=== PATIENT | female | born 1995 | race Caucasian/White ===

== ENCOUNTER 2017-07-24 09:31 | Inpatient (IN) | payer BC ==
[2017-07-24] MEDS ORDERED: Citric Acid/Sodium Citrate Solution 30 ML Cup PO ONE (10:21)
[2017-07-24] MEDS ORDERED: Sodium Chloride 0.9% 10 ML Syringe FLUSH PRN ×2 (10:21→14:12)
[2017-07-24] MEDS ORDERED: Metoclopramide 10 MG/2 ML SDV IVPUSH ONE (10:21)
[2017-07-24] MEDS ORDERED: ceFAZolin 2 GM in Premix Bag 1 BAG IV ONE (10:21)
[2017-07-24] MEDS ORDERED: Lactated Ringers 1,000 ML IV SCH (10:30)
--- NOTE | 2017-07-24 10:51 | PCM.LDHP ---
L&D History of Present Illness - General Date of Service: 07/24/17 Admit Problem/Dx: Patient Status Order with Admit Dx/Problem 07/24/17 10:21 Patient Status [ADT] Routine Admission Diagnosis/Problem Admission Diagnosis/Problem Source of Information: Patient History Limitations: Reports: No Limitations - History of Present Illness Introduction:: 22 y/o JASEN 07/30/2017 at EGA [id number] Presented to clinic with USG confirmed oblique lie. GBS positive. Aleternative of treatment including observation and expectant management, attempted version with discussion of possible co-morbidity and co-mortality and section with co-morbidity and co-mortality discussion. Patient and mother have elected to proceed with section. Improves with: Reports: None Worsens with: Reports: None Associated Symptoms: Reports: N - Related Data Allergies/Adverse Reactions: Allergies Allergy/AdvReac Type Severity Reaction Status Date / Time No Known Allergies Allergy Verified 07/21/16 21:03 Home Medications: Home Meds Azithromycin [Zithromax] 1 gm PO DAILY 07/24/17 [History] Benzonatate [Tessalon Perle] 100 mg PO TID PRN 07/24/17 [History] Prenat Vit Comb.10/Iron/Fa/Dha [Vitafol-OB + DHA] 1 each PO DAILY 07/24/17 [ History] Past Medical History HEENT History: Reports: Impaired Vision Other HEENT History: glasses : 1 Para: 0 (0000) LMP (Approximate): - Past Surgical History HEENT Surgical History: Reports: Oral Surgery Social & Family History - Family History Family Medical History: Noncontributory - Tobacco Use Smoking Status *Q: Current Every Day Smoker Years of Tobacco use: 2 Packs/Tins Daily: 1 - Caffeine Use Caffeine Use: Reports: None - Recreational Drug Use Recreational Drug Use: No - Living Situation & Occupation Living situation: Reports: Single, Other Occupation: Employed H&P Review of Systems - Review of Systems: Review Of Systems: See Below General: Reports: No Symptoms HEENT: Reports: No Symptoms Pulmonary: Reports: No Symptoms Cardiovascular: Reports: No Symptoms Gastrointestinal: Reports: No Symptoms Genitourinary: Reports: No Symptoms Musculoskeletal: Reports: No Symptoms Skin: Reports: No Symptoms Psychiatric: Reports: No Symptoms Neurological: Reports: No Symptoms Hematologic/Lymphatic: Reports: No Symptoms Immunologic: Reports: No Symptoms L&D Exam - Exam Exam: See Below - Vital Signs Weight: 188 lb - Benitez Score Benitez Score Cervix Position: Posterior Benitez Score Consistency: Soft Benitez Score Effacement: 0-30% Benitez Score Dilation: Closed Benitez Score 's Station: -3 Benitez Score Total: 2 - Exam General: Alert, Oriented HEENT: Conjunctiva Clear, Mucosa Moist & [place], PERRLA Neck: Supple, Trachea Midline Lungs: Clear to Auscultation, Normal Respiratory Effort Cardiovascular: Regular Rate, Regular Rhythm GI/Abdominal Exam: Normal Bowel Sounds, Soft, Non-Tender, No Distention, No Abnormal Bruit Genitourinary: Normal external exam, Normal bimanual exam, Normal speculum exam Back Exam: Normal Inspection, Full Range of Motion Extremities: Normal Inspection, Normal Range of Motion, Non-Tender, No Pedal Edema, Normal Capillary Refill Skin: Warm, Dry, Intact Neurological: Reflexes Equal Bilateral Psychiatric: Alert, Normal Affect, Normal Mood - Problem List (1) 39 weeks gestation of SNOMED Code(s): 89404829 ICD Code: Z3A.39 - 39 WEEKS GESTATION OF Status: Acute Current Visit: Yes (2) GBS (group B Streptococcus carrier), +RV culture, currently SNOMED Code(s): 8116252213175, 9359513697989 ICD Code: O99.820 - STREPTOCOCCUS B CARRIER STATE COMPLICATING Status: Acute Current Visit: Yes (3) Oblique presentation, antepartum SNOMED Code(s): 98492557 ICD Code: O32.2XX0 - MATERNAL CARE FOR TRANSVERSE AND OBLIQUE LIE, UNSP Status: Acute Current Visit: Yes Qualifiers: Fetus number: single or unspecified fetus Qualified Code(s): O32.2XX0 - Maternal care for transverse and oblique lie, not applicable or unspecified Problem List Initiated/Reviewed/Updated: No Orders Last 24hrs: Active Orders 24 hr Category Date Time Status Patient Status [ADT] Routine ADT 07/24/17 10:21 Active Blood Glucose Check, Bedside [RC] ASDIRECTED Care 07/24/17 10:21 Active Communication Order [RC] ROUTINE Care 07/24/17 10:21 Active Heart Tones [RC] PER UNIT ROUTINE Care 07/24/17 10:21 Active Peripheral IV Care [RC] . DIRECTED Care 07/24/17 10:24 Active Procedure Site Prep Instruct [RC] ASDIRECTED Care 07/24/17 10:21 Active Verify Patient Consent Obtain [RC] PER UNIT ROUTINE Care 07/24/17 10:21 Active Vital Signs [RC] PFP Care 07/24/17 10:21 Active CBC WITH AUTO DIFF [HEME] Stat Lab 07/24/17 10:21 Ordered TYPE AND SCREEN [BBK] Routine Lab 07/24/17 10:21 Ordered Lactated Ringers [Ringers, Lactated] 1,000 ml Med 07/24/17 10:30 Active IV ASDIRECTED Sodium Chloride 0.9% [Saline Flush] Med 07/24/17 10:21 Active 10 ml FLUSH ASDIRECTED PRN ceFAZolin [Ancef] 2 gm Med 07/24/17 10:21 Active Premix Bag 1 bag IV ONETIME Peripheral IV Insertion Adult [OM.PC] Routine Oth 07/24/17 10:21 Ordered Schedule Procedure [COMM] Per Unit Routine Oth 07/24/17 10:21 Ordered Resuscitation Status Routine Resus Stat 07/24/17 10:21 Ordered Medication Orders Cefazolin Sodium/Dextrose 2 gm (/ Premix) 50 mls @ 100 mls/hr IV ONETIME ONE Stop: 07/24/17 10:50 Lactated Ringer's (Ringers, Lactated) 1,000 mls @ 125 mls/hr IV ASDIRECTED TRAVIS Sodium Chloride (Saline Flush) 10 ml FLUSH ASDIRECTED PRN PRN Reason: Keep Vein Open Assessment/Plan Comment:: Plan section
[2017-07-24] MEDS ORDERED: Morphine PF 1 MG/ML Amp ONE (10:55)
[2017-07-24] MEDS ORDERED: Bupivacaine 0.5% 30 ML SDV ONE (11:12)
[2017-07-24] MEDS ORDERED: ceFAZolin 1 GM Vial ONE ×2 (11:20→11:27)
[2017-07-24] MEDS ORDERED: Oxytocin 10 Units/1 ML SDV ONE ×2 (11:29→12:26)
[2017-07-24] MEDS ORDERED: 50% Dextrose in Water 50 ML Syringe ONE (11:30)
--- NOTE | 2017-07-24 11:45 | US ---
Biophysical profile: Multiple real-time images were obtained. Comparison: Previous studies are available, most recent obstetrical ultrasound of 03/12/17. Dates: LMP: LMP given as 10/18/16, JASEN 07/25/17, gestational age 39 weeks 6 days Current ultrasound: JASEN 08/07/17, gestational age 38 weeks 0 days Earliest ultrasound (12/06/16): JASEN 07/20/17, gestational age 40 weeks 4 days presentation: Oblique headdown with face pointing to the maternal left side Placenta: Posterior and fundal Amniotic fluid: SENG 17.19 cm Measurements: BPD: 9.17 cm - 37 weeks 2 days Head circumference: 33.29 cm - 38 weeks 0 days Abdominal circumference: 34.93 cm - 38 weeks 6 days Femur length: 7.42 cm - 38 weeks 0 days Estimated weight: 3465 g (7 lbs. 10 oz.), estimated weight at the 50th percentile for age Heart rate: 148 bpm Cervical length: 3.1 cm Biophysical profile: movement 2, breathing movement 0, tone 2, amniotic fluid volume 2 Impression: 1. Single intrauterine fetus currently in oblique headdown position with face to the maternal left side. Dates as noted above. 2. 6 out of 8 on biophysical profile. Preliminary report given by the scanning technologist to physician's nurse Diagnostic code #5
[2017-07-24] MEDS ORDERED: Lactated Ringers 1,000 ML ONE ×2 (12:09→12:41)
[2017-07-24] MEDS ORDERED: Ketorolac 30 MG/ML SDV ONE (12:23)
[2017-07-24] MEDS ORDERED: fentaNYL 250 MCG/5 ML SDV IVPUSH PRN (12:38)
--- NOTE | 2017-07-24 12:39 | PCM.POSTAN ---
POST ANESTHESIA ASSESSMENT - MENTAL STATUS Mental Status: Alert, Oriented - VITAL SIGNS Pulse Rate: 85 SaO2: 97 Resp Rate: 8 Blood Pressure: 124/71 Temperature: 36.3 C - RESPIRATORY Respiratory Status: Respiratory Rate WNL, Airway Patent, O2 Saturation Stable, Supplemental Oxygen - CARDIOVASCULAR CV Status: Pulse Rate WNL, Blood Pressure Stable - GASTROINTESTINAL GI Status: No Symptoms - PAIN Pain Score: 0 - POST OP HYDRATION Hydration Status: Adequate & Stable - OBSERVATIONS Free Text/Narrative:: no anesthesia complications noted
--- NOTE | 2017-07-24 12:41 | PCM.PREANE ---
Preanesthetic Assessment - Anesthesia/Transfusion/Family Hx Anesthesia History: No Prior Anesthesia Family History of Anesthesia Reaction: No Transfusion History: No Prior Transfusion(s) - Review of Systems General: Other (cold symptoms) Pulmonary: Cough Cardiovascular: No Symptoms Gastrointestinal: No Symptoms Neurological: Numbness (hands) Other: Reports: Diabetes (gluco check at 1140 of 65) - Physical Assessment NPO Status Date: 07/23/17 NPO Status Time: 22:00 Pulse: 85 O2 Sat by Pulse Oximetry: 97 Respiratory Rate: 8 Blood Pressure: 124/71 Temperature: 36.3 C Vital Signs: Last Vital Signs Temp 36.3 C 07/24/17 12:39 Pulse 85 07/24/17 12:39 Resp 8 L 07/24/17 12:39 BP 124/71 07/24/17 12:39 Pulse Ox 97 07/24/17 12:39 Height: 1.52 m Weight: 85.275 kg ASA Class: 2 Mental Status: Alert & Oriented x3 Airway Class: Mallampati = 1 Dentition: Reports: Normal Dentition, [place](s) Thyro-Mental Finger Breadths: 3 Mouth Opening Finger Breadths: 3 ROM/Head Extension: Full Lungs: Clear to Auscultation, Normal Respiratory Effort Cardiovascular: Regular Rate, Regular Rhythm, No Murmurs - Lab Values: Laboratory Last Values WBC 18.74 K/mm3 (3.98-10.04) H 07/24/17 10:46 RBC 4.45 M/mm3 (3.98-5.22) 07/24/17 10:46 Hgb 13.7 gm/L (11.2-15.7) 07/24/17 10:46 Hct 38.4 % (34.1-44.9) 07/24/17 10:46 MCV 86.3 fl (79.4-94.8) 07/24/17 10:46 MCH 30.8 pg (25.6-32.2) 07/24/17 10:46 MCHC 35.7 g/dl (32.2-35.5) H 07/24/17 10:46 RDW Std Deviation 42.5 fL (36.4-46.3) 07/24/17 10:46 Plt Count 220 K/mm3 (182-369) 07/24/17 10:46 MPV 11.0 fl (9.4-12.3) 07/24/17 10:46 Neut % (Auto) 77.5 % (34.0-71.1) H 07/24/17 10:46 Lymph % (Auto) 15.6 % (19.3-51.7) L 07/24/17 10:46 [place] % (Auto) 6.1 % (4.7-12.5) 07/24/17 10:46 Eos % (Auto) 0.3 (0.7-5.8) L 07/24/17 10:46 Baso % (Auto) 0.1 % (0.1-1.2) 07/24/17 10:46 Neut # (Auto) 14.51 K/mm3 (1.56-6.13) H 07/24/17 10:46 Lymph # (Auto) 2.93 K/mm3 (1.18-3.74) 07/24/17 10:46 [place] # (Auto) 1.14 K/mm3 (0.24-0.36) H 07/24/17 10:46 Eos # (Auto) 0.06 K/mm3 (0.04-0.36) 07/24/17 10:46 Baso # (Auto) 0.02 K/mm3 (0.01-0.08) 07/24/17 10:46 POC Glucose 95 mg/dL (70-105) 07/24/17 12:37 - Allergies Allergies/Adverse Reactions: Allergies Allergy/AdvReac Type Severity Reaction Status Date / Time No Known Allergies Allergy Verified 07/21/16 21:03 - Anesthesia Plan Pre-Op Medication Ordered: Antacids - Acknowledgements Anesthesia Type Planned: Spinal Pt an Appropriate Candidate for the Planned Anesthesia: Yes Alternatives and Risks of Anesthesia Discussed w Pt/Guardian: Yes Pt/Guardian Understands and Agrees with Anesthesia Plan: Yes PreAnesthesia Questionnaire HEENT History: Reports: Impaired Vision Other HEENT History: glasses Gastrointestinal History: Reports: GERD - Past Surgical History HEENT Surgical History: Reports: Oral Surgery - SUBSTANCE USE Smoking Status *Q: Current Every Day Smoker Tobacco Use Within Last Twelve Months: Cigarettes Recreational Drug Use History: No - HOME MEDS Home Medications: Home Meds Azithromycin [Zithromax] 1 gm PO DAILY 07/24/17 [History] Benzonatate [Tessalon Perle] 100 mg PO TID PRN 07/24/17 [History] Prenat Vit Comb.10/Iron/Fa/Dha [Vitafol-OB + DHA] 1 each PO DAILY 07/24/17 [ History] - CURRENT (IN HOUSE) MEDS Current Meds: Current Medications Fentanyl (Sublimaze) 50 mcg IVPUSH Q5M PRN PRN Reason: PAIN Lactated Ringer's (Ringers, Lactated) 1,000 mls @ 125 mls/hr IV ASDIRECTED TRAVIS Last Admin: 07/24/17 11:00 Dose: 125 mls/hr Sodium Chloride (Saline Flush) 10 ml FLUSH ASDIRECTED PRN PRN Reason: Keep Vein Open Discontinued Medications Bupivacaine HCl (Marcaine 0.5%) Confirm Administered Dose 30 ml .ROUTE .STK-MED ONE Stop: 07/24/17 11:13 Cefazolin Sodium (Ancef) Confirm Administered Dose 2 gm .ROUTE .STK-MED ONE Stop: 07/24/17 11:21 Cefazolin Sodium (Ancef) Confirm Administered Dose 2 gm .ROUTE .STK-MED ONE Stop: 07/24/17 11:28 Citric Acid/Sodium Citrate (Bicitra Solution) 30 ml PO ONETIME ONE Stop: 07/24/17 10:22 Last Admin: 07/24/17 11:13 Dose: 30 ml Cefazolin Sodium/Dextrose 2 gm (/ Premix) 50 mls @ 100 mls/hr IV ONETIME ONE Stop: 07/24/17 10:50 Lactated Ringer's (Ringers, Lactated) Confirm Administered Dose 1,000 mls @ as directed .ROUTE .STK-MED ONE Stop: 07/24/17 12:10 Lactated Ringer's (Ringers, Lactated) Confirm Administered Dose 1,000 mls @ as directed .ROUTE .STK-MED ONE Stop: 07/24/17 12:42 Ketorolac Tromethamine (Toradol) Confirm Administered Dose 30 mg .ROUTE .STK- MED ONE Stop: 07/24/17 12:24 Metoclopramide HCl (Reglan) 10 mg IVPUSH ONETIME ONE Stop: 07/24/17 10:22 Last Admin: 07/24/17 11:13 Dose: 10 mg Morphine Sulfate (Duramorph Pf) Confirm Administered Dose 1 mg .ROUTE .STK-MED ONE Stop: 07/24/17 10:56 Oxytocin (Pitocin) Confirm Administered Dose 10 unit .ROUTE .STK-MED ONE Stop: 07/24/17 11:30 Oxytocin (Pitocin) Confirm Administered Dose 10 unit .ROUTE .STK-MED ONE Stop: 07/24/17 12:27
--- NOTE | 2017-07-24 12:45 | PCM.OPNOTE ---
- General Post-Op/Procedure Note Date of Surgery/Procedure: 07/24/17 Operative Procedure(s): Primary low segment transverse Pre Op Diagnosis: Oblique lie, 39 weeks 1 day estimated gestational age, gestational diabetes, group B strep positive Post-Op Diagnosis: Same Anesthesia Technique: Spinal Primary Surgeon: Huber Marrero Secondary Surgeon: Rasheed Fraire Anesthesia Provider: Brian Stinson Reason Planetarium Technician Was Necessary: Asst. surgery, decreased co-morbidity and co-mortality Role of Planetarium Technician: Asst. surgery, decreased co-morbidity and co-mortality Fluid Replacement, Intraop: 2,300 Output, Urine Amount: 30 EBL in mLs: 550 Drain/Tube Comments:: Yang catheter to gravity drainage closed system Complications: None Condition: Good Free Text/Narrative:: Patient was transported to operating room #1 and placed under spinal anesthesia in the supine position with wedge under the right hip and right flank. SCDs in place and functioning. Ancef 2 g given intravenously prior surgery. Patient prepared and draped in a sterile fashion. Timeout performed confirming name date of and procedure as section. Adequate level of anesthesia was confirmed patient's mother was brought to the operating room. Incision was made and care was sharp section to into the anterior fascia peritoneal cavity entered without difficulty. Bladder flap created pushed caudad. Low segment transverse performed. Amnionic fluid clear upon entry into the amnionic cavity. Vacuum Kiwi was applied 2 in the green for less than 20 seconds. The male liveborn was delivered at 1208 hrs. on 07/24/17 Apgars 9/9 weight 3500 g, 7 lbs. 11 oz. Delivered FLORIDA Waller gravity flow irrigator cared for the . Cord blood collected from three-vessel cord placenta removed manually endometrial cavity inspected. Sponge needle pack and sharp count correct times one on closure the uterine incision. Both tubes and ovaries were normal the clots were cleaned from the gutters and cul-de-sac uterus placed into the abdominal cavity. Uterine incision reinspected no bleeding. Sponge needle pack asthma sharp count correct 2 and the abdominal cavity was closed with #1 PDS for the anterior fascia. Her gait and carried out and subcutaneous tissue and the skin was closed subcuticular 3-0 Monocryl. Dermabond applied. Clots were cleaned from the vagina at the end of the procedure. Patient transported postanesthesia care unit in satisfactory condition. No blood transfusions were required. Procedure duration 24 minutes. Toradol given at 1230 hrs.
[2017-07-24] MEDS ORDERED: Benzonatate 100 MG Cap PO PRN (12:48)
[2017-07-24] MEDS ORDERED: Albuterol 0.083% 2.5 MG/3 ML Neb Soln ONE (12:56)
[2017-07-24] MEDS ORDERED: Albuterol 0.083% 2.5 MG/3 ML Neb Soln NEB PRN (13:06)
[2017-07-24] MEDS ORDERED: Dextrose 5%-Lactated Ringers 1,000 ML IV SCH (14:12)
[2017-07-24] MEDS ORDERED: ePHEDrine 50 MG/ML SDV IVPUSH PRN (14:12)
[2017-07-24] MEDS ORDERED: Ondansetron 4 MG/2 ML SDV IV PRN (14:12)
[2017-07-24] MEDS ORDERED: Naloxone 0.4 MG/ML SDV IVPUSH PRN (14:12)
[2017-07-24] MEDS ORDERED: diphenhydrAMINE 50 MG/ML SDV IVPUSH PRN (14:12)
[2017-07-24] MEDS ORDERED: Acetaminophen 325 MG Tab PO PRN (14:12)
[2017-07-24] MEDS ORDERED: Lanolin 100% Cream 7 GM Tube TOP PRN (14:12)
[2017-07-24] MEDS ORDERED: Azithromycin 250 MG Tab PO SCH (15:45)
[2017-07-24] MEDS ORDERED: Albuterol 0.5% 2.5 MG/0.5 ML Neb Soln NEB SCH (16:00)
[2017-07-24] MEDS: Simethicone 80 MG Tab.Chew PO SCH ×3 (16:52→21:13)
[2017-07-24] MEDS: Ketorolac 30 MG/ML SDV IVPUSH SCH (19:14)
[2017-07-24] MEDS: BENZONATATE 100 MG PO SCH ×2 (19:15→21:13)
[2017-07-25] MEDS: Ketorolac 30 MG/ML SDV IVPUSH SCH ×2 (01:06→06:05)
--- NOTE | 2017-07-25 07:51 | PCM.SN ---
- Free Text/Narrative Note: POD#1/PPD#1 Afebrile, Breast feeding. Incision normal. Uterus involuting normally. No heavy vaginal bleeding. No leg cramping. Dr Fraire assumes call at 1700 today and will see and dismiss pt.
[2017-07-25] MEDS: Docusate Sodium 100 MG Cap PO PRN (08:54)
[2017-07-25] MEDS: Simethicone 80 MG Tab.Chew PO SCH ×4 (08:54→21:14)
[2017-07-25] MEDS: AZITHROMYCIN 500 MG PO SCH (08:56)
[2017-07-25] MEDS: BENZONATATE 100 MG PO SCH ×3 (08:56→21:07)
--- NOTE | 2017-07-25 09:58 | PCM48HPAN ---
Post Anesthesia Note - EVALUATION WITHIN 48HRS OF ANESTHETIC Vital Signs in Normal Range: Yes Patient Participated in Evaluation: Yes Respiratory Function Stable: Yes Airway Patent: Yes Cardiovascular Function Stable: Yes Hydration Status Stable: Yes Pain Control Satisfactory: Yes Nausea and Vomiting Control Satisfactory: Yes Mental Status Recovered: Yes - COMMENTS/OBSERVATIONS Free Text/Narrative:: Patient denies any headaches, residual numbness/tingling to LE, but did state she does have a little back soreness at the insertion site. Educated patient it may take a few days for that to resolve. Stated the epidural worked great for the delivery.
[2017-07-25] MEDS: Acetaminophen/oxyCODONE 325-5 MG Tab PO PRN ×2 (12:24→22:38)
[2017-07-25] MEDS: Ibuprofen 600 MG Tab PO PRN (21:08)
[2017-07-26] MEDS: Docusate Sodium 100 MG Cap PO PRN (00:20)
[2017-07-26] MEDS: Acetaminophen/oxyCODONE 325-5 MG Tab PO PRN (04:51)
[2017-07-26] MEDS: Ibuprofen 600 MG Tab PO PRN (04:51)
[2017-07-26 08:49] VITALS: BP 138/74
[2017-07-26] MEDS: Simethicone 80 MG Tab.Chew PO SCH (09:25)
[2017-07-26] MEDS: BENZONATATE 100 MG PO SCH (09:25)
[2017-07-26] MEDS: AZITHROMYCIN 500 MG PO SCH (09:25)
--- NOTE | 2017-07-26 10:46 | PCM.SN ---
- Free Text/Narrative Note: Post Operative Progress Note POD # 2 Subjective: Doing well overall. Ambulating without difficulty. Lochia minimal. Voiding without difficulty. Passing flatus and had a bowel movement. Tolerating regular diet. Pain controlled with oral medications. Breast feeding with minimal difficulty. Objective: Vitals: Vital Signs - 24 hr 07/25/17 07/25/17 07/25/17 11:00 11:53 12:00 Temperature Temperature [ 37.0 C Temporal] Pulse, 72 Peripheral Pulse, 72 Peripheral [ Right Pulse Oximetry] Respiratory 18 Rate Blood Pressure 116/68 Blood Pressure 116/68 [Left Upper Arm ] O2 Sat by Pulse 100 97 97 Oximetry 07/25/17 07/25/17 07/25/17 13:00 18:25 18:28 Temperature 35.7 C 35.7 C Temperature [ Temporal] Pulse, Peripheral Pulse, 89 Peripheral [ Right Pulse Oximetry] Respiratory 18 18 Rate Blood Pressure 150/104 H 137/91 H Blood Pressure [Left Upper Arm ] O2 Sat by Pulse 98 98 Oximetry 07/25/17 07/26/17 07/26/17 20:54 04:49 08:08 Temperature 36.6 C 36.4 C Temperature [ Temporal] Pulse, 74 74 67 Peripheral Pulse, Peripheral [ Right Pulse Oximetry] Respiratory 14 14 Rate Blood Pressure 136/87 131/72 138/74 Blood Pressure [Left Upper Arm ] O2 Sat by Pulse 99 100 98 Oximetry Physical Exam General: Alert and oriented, no acute distress Lungs: Clear to auscultation bilaterally Heart: Regular rate and rhythm Abdomen: Soft, minimal appropriate tenderness, non-distended, fundus midline, nontender and below the umbilicus Incision: Clean, dry and intact, no erythema, bleeding or drainage, Prineo dressing in place Extremities: No edema Labs: Laboratory Tests 07/24/17 07/24/17 07/24/17 Range/Units 10:46 10:46 11:34 WBC 18.74 H (3.98-10.04) K/mm3 RBC 4.45 (3.98-5.22) M/mm3 Hgb 13.7 (11.2-15.7) gm/L Hct 38.4 (34.1-44.9) % MCV 86.3 (79.4-94.8) fl MCH 30.8 (25.6-32.2) pg MCHC 35.7 H (32.2-35.5) g/dl RDW Std Deviation 42.5 (36.4-46.3) fL Plt Count 220 (182-369) K/mm3 MPV 11.0 (9.4-12.3) fl Neut % (Auto) 77.5 H (34.0-71.1) % Lymph % (Auto) 15.6 L (19.3-51.7) % [place] % (Auto) 6.1 (4.7-12.5) % Eos % (Auto) 0.3 L (0.7-5.8) Baso % (Auto) 0.1 (0.1-1.2) % Neut # (Auto) 14.51 H (1.56-6.13) K/mm3 Lymph # (Auto) 2.93 (1.18-3.74) K/mm3 [place] # (Auto) 1.14 H (0.24-0.36) K/mm3 Eos # (Auto) 0.06 (0.04-0.36) K/mm3 Baso # (Auto) 0.02 (0.01-0.08) K/mm3 Manual Slide Review POC Glucose 65 L (70-105) mg/dL Blood Type AB POSITIVE Gel Antibody Screen Negative 07/24/17 07/25/17 Range/Units 12:37 06:57 WBC 21.05 H (3.98-10.04) K/mm3 RBC 3.96 L (3.98-5.22) M/mm3 Hgb 12.3 (11.2-15.7) gm/L Hct 34.6 (34.1-44.9) % MCV 87.4 (79.4-94.8) fl MCH 31.1 (25.6-32.2) pg MCHC 35.5 (32.2-35.5) g/dl RDW Std Deviation 42.9 (36.4-46.3) fL Plt Count 197 (182-369) K/mm3 MPV 10.7 (9.4-12.3) fl Neut % (Auto) 77.5 H (34.0-71.1) % Lymph % (Auto) 12.5 L (19.3-51.7) % [place] % (Auto) 9.2 (4.7-12.5) % Eos % (Auto) 0.3 L (0.7-5.8) Baso % (Auto) 0.1 (0.1-1.2) % Neut # (Auto) 16.31 H (1.56-6.13) K/mm3 Lymph # (Auto) 2.63 (1.18-3.74) K/mm3 [place] # (Auto) 1.94 H (0.24-0.36) K/mm3 Eos # (Auto) 0.06 (0.04-0.36) K/mm3 Baso # (Auto) 0.02 (0.01-0.08) K/mm3 Manual Slide Review Abnormal smear POC Glucose 95 (70-105) mg/dL Blood Type Gel Antibody Screen ASSESSMENT: 22-year-old female G 1 P 1001 s/p primary section POD #2 for oblique lie and desired section, complicated by diet controlled gestational diabetes, maternal smoking, GBS positive PLAN: Doing well Breast feeding with minimal difficulty. Assist as needed Incision healing well. Continue to keep clean and dry. Lochia minimal. Continue to monitor for appropriate lochia. Continue routine post-operative care Anticipate discharge home today Rasheed Fraire MD 10:45 AM 07/26/2017
--- NOTE | 2017-07-26 10:49 | PCM.DCSUM1 ---
Discharge Summary - Hospital Course Free Text/Narrative:: Patient was transported to operating room #1 and placed under spinal anesthesia in the supine position with wedge under the right hip and right flank. SCDs in place and functioning. Ancef 2 g given intravenously prior surgery. Patient prepared and draped in a sterile fashion. Timeout performed confirming name date of and procedure as section. Adequate level of anesthesia was confirmed patient's mother was brought to the operating room. Incision was made and care was sharp section to into the anterior fascia peritoneal cavity entered without difficulty. Bladder flap created pushed caudad. Low segment transverse performed. Amnionic fluid clear upon entry into the amnionic cavity. Vacuum Kiwi was applied 2 in the green for less than 20 seconds. The male liveborn was delivered at 1208 hrs. on 07/24/17 Apgars 9/9 weight 3500 g, 7 lbs. 11 oz. Delivered FLORIDA Waller shrimp peeler cared for the . Cord blood collected from three-vessel cord placenta removed manually endometrial cavity inspected. Sponge needle pack and sharp count correct times one on closure the uterine incision. Both tubes and ovaries were normal the clots were cleaned from the gutters and cul-de-sac uterus placed into the abdominal cavity. Uterine incision reinspected no bleeding. Sponge needle pack asthma sharp count correct 2 and the abdominal cavity was closed with #1 PDS for the anterior fascia. Her gait and carried out and subcutaneous tissue and the skin was closed subcuticular 3-0 Monocryl. Dermabond applied. Clots were cleaned from the vagina at the end of the procedure. Patient transported postanesthesia care unit in satisfactory condition. No blood transfusions were required. Procedure duration 24 minutes. Toradol given at 1230 hrs. HPI Initial Comments: Patient was transported to operating room #1 and placed under spinal anesthesia in the supine position with wedge under the right hip and right flank. SCDs in place and functioning. Ancef 2 g given intravenously prior surgery. Patient prepared and draped in a sterile fashion. Timeout performed confirming name date of and procedure as section. Adequate level of anesthesia was confirmed patient's mother was brought to the operating room. Incision was made and care was sharp section to into the anterior fascia peritoneal cavity entered without difficulty. Bladder flap created pushed caudad. Low segment transverse performed. Amnionic fluid clear upon entry into the amnionic cavity. Vacuum Kiwi was applied 2 in the green for less than 20 seconds. The male liveborn was delivered at 1208 hrs. on 07/24/17 Apgars 9/9 weight 3500 g, 7 lbs. 11 oz. Delivered FLORIDA Waller shrimp peeler cared for the . Cord blood collected from three-vessel cord placenta removed manually endometrial cavity inspected. Sponge needle pack and sharp count correct times one on closure the uterine incision. Both tubes and ovaries were normal the clots were cleaned from the gutters and cul-de-sac uterus placed into the abdominal cavity. Uterine incision reinspected no bleeding. Sponge needle pack asthma sharp count correct 2 and the abdominal cavity was closed with #1 PDS for the anterior fascia. Her gait and carried out and subcutaneous tissue and the skin was closed subcuticular 3-0 Monocryl. Dermabond applied. Clots were cleaned from the vagina at the end of the procedure. Patient transported postanesthesia care unit in satisfactory condition. No blood transfusions were required. Procedure duration 24 minutes. Toradol given at 1230 hrs. Brief History: Patient was transported to operating room #1 and placed under spinal anesthesia in the supine position with wedge under the right hip and right flank. SCDs in place and functioning. Ancef 2 g given intravenously prior surgery. Patient prepared and draped in a sterile fashion. Timeout performed confirming name date of and procedure as section. Adequate level of anesthesia was confirmed patient's mother was brought to the operating room. Incision was made and care was sharp section to into the anterior fascia peritoneal cavity entered without difficulty. Bladder flap created pushed caudad. Low segment transverse performed. Amnionic fluid clear upon entry into the amnionic cavity. Vacuum Kiwi was applied 2 in the green for less than 20 seconds. The male liveborn was delivered at 1208 hrs. on 07/24/17 Apgars 9/9 weight 3500 g, 7 lbs. 11 oz. Delivered FLORIDA Waller shrimp peeler cared for the . Cord blood collected from three-vessel cord placenta removed manually endometrial cavity inspected. Sponge needle pack and sharp count correct times one on closure the uterine incision. Both tubes and ovaries were normal the clots were cleaned from the gutters and cul-de-sac uterus placed into the abdominal cavity. Uterine incision reinspected no bleeding. Sponge needle pack asthma sharp count correct 2 and the abdominal cavity was closed with #1 PDS for the anterior fascia. Her gait and carried out and subcutaneous tissue and the skin was closed subcuticular 3-0 Monocryl. Dermabond applied. Clots were cleaned from the vagina at the end of the procedure. Patient transported postanesthesia care unit in satisfactory condition. No blood transfusions were required. Procedure duration 24 minutes. Toradol given at 1230 hrs. - Discharge Data Discharge Date: 07/26/17 Discharge Disposition: Home, Self-Care 01 Condition: Good - Discharge Diagnosis/Problem(s) (1) Status post section SNOMED Code(s): 509549241 ICD Code: Z98.891 - HISTORY OF UTERINE SCAR FROM PREVIOUS SURGERY Status: Acute Current Visit: Yes (2) 39 weeks gestation of SNOMED Code(s): 45578339 ICD Code: Z3A.39 - 39 WEEKS GESTATION OF Status: Acute Current Visit: Yes (3) GBS (group B Streptococcus carrier), +RV culture, currently SNOMED Code(s): 9293039740462, 3084986399655 ICD Code: O99.820 - STREPTOCOCCUS B CARRIER STATE COMPLICATING Status: Acute Current Visit: Yes (4) Gestational diabetes mellitus (GDM) SNOMED Code(s): 82753886 ICD Code: O24.419 - GESTATIONAL DIABETES MELLITUS IN , UNSP CONTROL Status: Acute Current Visit: No Qualifiers: Gestational diabetes mellitus control: diet-controlled (5) Oblique presentation, antepartum SNOMED Code(s): 95803113 ICD Code: O32.2XX0 - MATERNAL CARE FOR TRANSVERSE AND OBLIQUE LIE, UNSP Status: Acute Current Visit: Yes Qualifiers: Fetus number: single or unspecified fetus Qualified Code(s): O32.2XX0 - Maternal care for transverse and oblique lie, not applicable or unspecified - Patient Summary/Data Operative Procedure(s) Performed: Primary low segment transverse Complications: None Consults: None Hospital Course: Patient was admitted following primary section for oblique lie. Please see operative report for full details. Patient did well in post operative date. On post operative day #1 she was meeting postoperative milestones. She was ambulating without difficulty. Her pain was able to be controlled with oral medications. She was tolerating a regular diet without any nausea. She was voiding without difficulty after catheter was removed. She was breast-feeding without difficulty. On postoperative day #2 she continued to meet all postoperative milestones. She desired to be discharged home in the morning of postoperative day #2. She will follow up with Dr. Marrero in 2 weeks or earlier as needed. - Patient Instructions Diet: Regular Diet as Tolerated Activity: As Tolerated, No Lifting Over 20 Pounds Activity, Other: Nothing in vagina for 6 weeks Driving: Do Not Drive (While on narcotic medications) Showering/Bathing: May Shower, No Tub Bathing/Swimming (For 2 weeks) Wound/Incision Care: Keep Operative Site/Wound Site Clean and Dry Notify Provider of: Fever, Increased Pain, Swelling and Redness, Drainage, Nausea and/or Vomiting - Discharge Plan Home Medications: Home Meds Azithromycin [Zithromax] 1 gm PO DAILY 07/24/17 [History] Benzonatate [Tessalon Perle] 100 mg PO TID PRN 07/24/17 [History] Prenat Vit Comb.10/Iron/Fa/Dha [Vitafol-OB + DHA] 1 each PO DAILY 07/24/17 [ History] Acetaminophen/oxyCODONE [Percocet 325-5 MG] 1 - 2 tab PO Q6H PRN #20 tablet [Rx] Docusate Sodium [Colace] 100 mg PO Q12H PRN cap 07/26/17 [Rx] Ibuprofen [IJD: Ibuprofen] 600 mg PO Q6H PRN tablet 07/26/17 [Rx] Lanolin [Lansinoh HPA] 1 applic TOP ASDIRECTED PRN tube 07/26/17 [Rx] Patient's Own Medication [Ptom] 500 each PO DAILY each 07/26/17 [Rx] Patient Handouts: Delivery, Care After, Home Care Instructions for Mom , Care After Delivery Referrals: Huber Marrero MD [Primary Care Provider] - (Follow-up in 2 weeks or earlier as needed for postoperative visit.) - Discharge Summary/Plan Comment DC Time >30 min.: No - Patient Data Vitals - Most Recent: Last Vital Signs Temp 36.4 C 07/26/17 04:49 Pulse 67 07/26/17 08:08 Resp 14 07/26/17 04:49 BP 138/74 07/26/17 08:08 Pulse Ox 98 07/26/17 08:08 Weight - Most Recent: 85.275 kg Med Orders - Current: Current Medications Acetaminophen (Tylenol) 650 mg PO Q4H PRN PRN Reason: mild pain or fever Albuterol (Proventil Neb Soln) 2.5 mg NEB Q4HRRT PRN PRN Reason: Shortness of Breath Benzonatate (Tessalon Perles) 100 mg PO TID PRN PRN Reason: Cough Benzonatate (Tessalon Perles) 100 mg PO TID TRAVIS Last Admin: 07/26/17 09:25 Dose: 100 mg Diphenhydramine HCl (Benadryl) 25 mg IVPUSH Q6H PRN PRN Reason: Itching or Nausea Docusate Sodium (Colace) 100 mg PO Q12H PRN PRN Reason: Constipation Last Admin: 07/26/17 00:20 Dose: 100 mg Emollient Ointment (Lansinoh Hpa) 0 gm TOP ASDIRECTED PRN PRN Reason: Sore Nipples Ephedrine Sulfate (Ephedrine Sulfate) 5 mg IVPUSH SEECOMMENT PRN PRN Reason: Other Ibuprofen (Motrin) 600 mg PO Q6H PRN PRN Reason: mild pain or fever Last Admin: 07/26/17 04:51 Dose: 600 mg Naloxone HCl (Narcan) 0.1 mg IVPUSH SEECOMMENT PRN PRN Reason: Respiratory Depression Ondansetron HCl (Zofran) 4 mg IV Q8H PRN PRN Reason: Nausea/Vomiting Oxycodone/Acetaminophen (Percocet 325-5 Mg) 2 tab PO Q4H PRN PRN Reason: Pain (moderate 4-6) Last Admin: 07/26/17 04:51 Dose: 2 tab Azithromycin 500 Mg (Tabs*Pt Own Med*) 500 each PO DAILY [facility] Stop: 07/30/17 09:01 Last Admin: 07/26/17 09:25 Dose: 500 each Simethicone (Simethicone) 80 mg PO PCBED [facility] Last Admin: 07/26/17 09:25 Dose: 80 mg Sodium Chloride (Saline Flush) 10 ml FLUSH ASDIRECTED PRN PRN Reason: Keep Vein Open Discontinued Medications Albuterol (Proventil Neb Soln) Confirm Administered Dose 2.5 mg .ROUTE .STK-MED ONE Stop: 07/24/17 12:57 Last Admin: 07/24/17 13:04 Dose: 2.5 mg Albuterol (Proventil) 2.5 mg NEB QIDRT [facility] Azithromycin (Zithromax) 500 mg PO DAILY [facility] Bupivacaine HCl (Marcaine 0.5%) Confirm Administered Dose 30 ml .ROUTE .STK-MED ONE Stop: 07/24/17 11:13 Last Admin: 07/24/17 12:03 Dose: 20 ml Cefazolin Sodium (Ancef) Confirm Administered Dose 2 gm .ROUTE .STK-MED ONE Stop: 07/24/17 11:21 Cefazolin Sodium (Ancef) Confirm Administered Dose 2 gm .ROUTE .STK-MED ONE Stop: 07/24/17 11:28 Citric Acid/Sodium Citrate (Bicitra Solution) 30 ml PO ONETIME ONE Stop: 07/24/17 10:22 Last Admin: 07/24/17 11:13 Dose: 30 ml Dextrose/Water (Dextrose 50% In Water) 50 ml .ROUTE .STK-MED ONE Stop: 07/24/17 11:31 Fentanyl (Sublimaze) 50 mcg IVPUSH Q5M PRN PRN Reason: PAIN Stop: 07/24/17 18:00 Cefazolin Sodium/Dextrose 2 gm (/ Premix) 50 mls @ 100 mls/hr IV ONETIME ONE Stop: 07/24/17 10:50 Last Admin: 07/24/17 16:52 Dose: Not Given Lactated Ringer's (Ringers, Lactated) 1,000 mls @ 125 mls/hr IV ASDIRECTED [facility] Last Admin: 07/24/17 11:00 Dose: 125 mls/hr Lactated Ringer's (Ringers, Lactated) Confirm Administered Dose 1,000 mls @ as directed .ROUTE .STK-MED ONE Stop: 07/24/17 12:10 Lactated Ringer's (Ringers, Lactated) Confirm Administered Dose 1,000 mls @ as directed .ROUTE .STK-MED ONE Stop: 07/24/17 12:42 Dextrose/Lactated Ringer's (Dextrose 5%-Lactated Ringers) 1,000 mls @ 125 mls/ hr IV ASDIRECTED TRAVIS Stop: 07/24/17 22:11 Last Admin: 07/24/17 17:19 Dose: 125 mls/hr Ketorolac Tromethamine (Toradol) Confirm Administered Dose 30 mg .ROUTE .STK- MED ONE Stop: 07/24/17 12:24 Ketorolac Tromethamine (Toradol) 30 mg IVPUSH Q6H TRAVIS Stop: 07/25/17 07:01 Last Admin: 07/25/17 06:05 Dose: 30 mg Metoclopramide HCl (Reglan) 10 mg IVPUSH ONETIME ONE Stop: 07/24/17 10:22 Last Admin: 07/24/17 11:13 Dose: 10 mg Morphine Sulfate (Duramorph Pf) Confirm Administered Dose 1 mg .ROUTE .STK-MED ONE Stop: 07/24/17 10:56 Oxytocin (Pitocin) Confirm Administered Dose 10 unit .ROUTE .STK-MED ONE Stop: 07/24/17 11:30 Oxytocin (Pitocin) Confirm Administered Dose 10 unit .ROUTE .STK-MED ONE Stop: 07/24/17 12:27 Sodium Chloride (Saline Flush) 10 ml FLUSH ASDIRECTED PRN PRN Reason: Keep Vein Open *Q Meaningful Use (DIS) - VTE *Q VTE Criteria *Q: - Stroke *Q Stroke Criteria *Q: - AMI *Q AMI Criteria *Q:
== END 2017-07-26 11:43 | disposition home or self-care (01) | DRG 540 ==
LOC: JD.OB 09:31 → UNDODISIN 07-26 11:43
PROVIDERS: ADMIT Obstetrics & Gynecology; ATTEND Obstetrics & Gynecology
PROC: 10D00Z1 Extraction of Products of Conception, Low, Open Approach (ICD-10-PCS; principal; 2017-07-24)
DX: O32.2XX0 Maternal care for transverse and oblique lie, not applicable or unspecified (principal); O24.420 Gestational diabetes mellitus in childbirth, diet controlled; O99.824 Streptococcus B carrier state complicating childbirth; Z3A.39 39 weeks gestation of pregnancy; Z37.0 Single live birth; O99.334 Smoking (tobacco) complicating childbirth; O36.8130 Decreased fetal movements, third trimester, not applicable or unspecified
CPT/HCPCS: 01961; 36415; 76816; 76819; 76819-26; 82962; 85025; 86850; 86900; 86901; 94640; A9270-GY; J0690; J1885; J2274; J2590; J2765; J7042; J7060; J7120

== ENCOUNTER 2017-07-28 19:23 | Emergency (ER) | payer BC ==
[2017-07-28 19:35] VITALS: BP 131/78
[2017-07-28] MEDS ORDERED: Sodium Chloride 0.9% 10 ML Syringe FLUSH PRN (19:44)
--- NOTE | 2017-07-28 20:32 | CT ---
Head CT Technique: Multiple axial sections were obtained through the brain. Intravenous contrast was not utilized. Comparison: No previous intracranial imaging. Findings: Ventricles along with basal cisterns and sulci over the convexities are within normal limits for the patient's age. No abnormal parenchymal densities are seen. No evidence of intracranial hemorrhage. No midline shift or mass effect is seen. Bone window settings were reviewed which shows the visualized sinuses to appear clear. No acute calvarial abnormality is identified. Impression: 1. Nothing acute is identified on noncontrast head CT exam. Diagnostic code #1
--- NOTE | 2017-07-28 20:50 | EDM.PDOC ---
ED HPI GENERAL MEDICAL PROBLEM - General Chief Complaint: Neuro Symptoms/Deficits Stated Complaint: RIGHT ARM AND FINGERS NUMB RECENT CSECTION Time Seen by Provider: 07/28/17 19:37 Source of Information: Reports: Patient, Family History Limitations: Reports: No Limitations - History of Present Illness INITIAL COMMENTS - FREE TEXT/NARRATIVE: The patient presents with right arm numbness and weakness. She woke up this morning with right hand numbness. She took a nap this afternoon and when she woke up at 1430 she had more numbness to the arm. She also could not cut her prime rib. She just had her baby 4 days ago by . There were no complications. She denies fever, chills, cough, headache, chest pain, abdominal pain, nausea, vomiting or dysuria. She has no health problems. She does smoke. Onset: Gradual Duration: Hour(s): (Woke up with it at 0930) Location: Reports: Upper Extremity, Right Quality: Reports: Other (Numbness) Severity: Moderate Improves with: Reports: None Worsens with: Reports: None Context: Reports: Activity (She woke up with hand numbness at 0930 and after a nap her arm was affected at 1630) Associated Symptoms: Reports: No Other Symptoms - Related Data Allergies Allergy/AdvReac Type Severity Reaction Status Date / Time No Known Allergies Allergy Verified 07/28/17 19:36 Home Meds: Home Meds Azithromycin [Zithromax] 1 gm PO DAILY 07/24/17 [History] Benzonatate [Tessalon Perle] 100 mg PO TID PRN 07/24/17 [History] Prenat Vit Comb.10/Iron/Fa/Dha [Vitafol-OB + DHA] 1 each PO DAILY 07/24/17 [ History] Acetaminophen/oxyCODONE [Percocet 325-5 MG] 1 - 2 tab PO Q6H PRN #20 tablet [Rx] Docusate Sodium [Colace] 100 mg PO Q12H PRN cap 07/26/17 [Rx] Ibuprofen [IJD: Ibuprofen] 600 mg PO Q6H PRN tablet 07/26/17 [Rx] Lanolin [Lansinoh HPA] 1 applic TOP ASDIRECTED PRN tube 07/26/17 [Rx] Patient's Own Medication [Ptom] 500 each PO DAILY each 07/26/17 [Rx] Past Medical History HEENT History: Reports: Impaired Vision Other HEENT History: glasses Gastrointestinal History: Reports: GERD [employer]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: Endocrine/Metabolic History: Reports: Diabetes, Gestational - Past Surgical History HEENT Surgical History: Reports: Oral Surgery Endocrine Surgical History: Reports: None Social & Family History - Family History Family Medical History: Noncontributory - Tobacco Use Smoking Status *Q: Current Every Day Smoker Years of Tobacco use: 3 Packs/Tins Daily: 1 Second Hand Smoke Exposure: Yes - Caffeine Use Caffeine Use: Reports: None - Recreational Drug Use Recreational Drug Use: No - Living Situation & Occupation Living situation: Reports: Single, Other Occupation: Employed ED ROS GENERAL - Review of Systems Review Of Systems: See Below Constitutional: Reports: No Symptoms HEENT: Reports: No Symptoms Respiratory: Reports: No Symptoms Cardiovascular: Reports: No Symptoms Endocrine: Reports: No Symptoms GI/Abdominal: Reports: No Symptoms : Reports: No Symptoms Musculoskeletal: Reports: Other (Right arm numbness and weakness) Skin: Reports: No Symptoms Neurological: Reports: Numbness (Right arm), Weakness (mild to the right arm) ED EXAM, NEURO - Physical Exam Exam: See Below Exam Limited By: No Limitations General Appearance: Alert, No Apparent Distress Ears: Normal External Exam Nose: Normal Inspection Head Exam: Atraumatic, Normocephalic Neck: Normal Inspection Respiratory/Chest: No Respiratory Distress, Lungs Clear, Normal Breath Sounds Cardiovascular: Regular Rate, Rhythm, No Edema, No Murmur GI/Abdominal: Soft, Non-Tender, No Organomegaly, No Mass Neurological: Alert, Oriented x 3, Other (mild numbness to palpation of the right arm and mild weakness with green end man strength) Back Exam: Normal Inspection Extremities: Normal Inspection EKG INTERPRETATION EKG Date: 07/28/17 Time: 19:42 Rhythm: NSR Rate (Beats/Min): 84 [place]: Normal P-Wave: Present QRS: Normal ST-T: Normal QT: Normal Course - Vital Signs Last Recorded V/S: Last Vital Signs Temp 98.3 F 07/28/17 19:32 Pulse 81 07/28/17 19:32 Resp 16 07/28/17 19:32 BP 131/78 07/28/17 19:32 Pulse Ox 97 07/28/17 19:32 - Orders/Labs/Meds Orders: Active Orders 24 hr Category Date Time Status Cardiac Monitoring [RC] . DIRECTED Care 07/28/17 19:44 Active EKG Documentation Completion [RC] STAT Care 07/28/17 19:45 Active Peripheral IV Care [RC] . DIRECTED Care 07/28/17 19:45 Active Sodium Chloride 0.9% [Saline Flush] Med 07/28/17 19:44 Active 10 ml FLUSH ASDIRECTED PRN Peripheral IV Insertion Adult [OM.PC] Stat Oth 07/28/17 19:44 Ordered Medication Orders Sodium Chloride (Saline Flush) 10 ml FLUSH ASDIRECTED PRN PRN Reason: Keep Vein Open Last Admin: 07/28/17 19:59 Dose: 10 ml Labs: Laboratory Tests 07/28/17 07/28/17 07/28/17 Range/Units 19:40 19:40 19:41 WBC 12.26 H (3.98-10.04) K/mm3 RBC 4.62 (3.98-5.22) M/mm3 Hgb 14.3 (11.2-15.7) gm/L Hct 40.2 (34.1-44.9) % MCV 87.0 (79.4-94.8) fl MCH 31.0 (25.6-32.2) pg MCHC 35.6 H (32.2-35.5) g/dl RDW Std Deviation 43.5 (36.4-46.3) fL Plt Count 317 (182-369) K/mm3 MPV 10.1 (9.4-12.3) fl Neut % (Auto) 65.3 (34.0-71.1) % Lymph % (Auto) 24.1 (19.3-51.7) % [place] % (Auto) 6.0 (4.7-12.5) % Eos % (Auto) 4.0 (0.7-5.8) Baso % (Auto) 0.3 (0.1-1.2) % Neut # (Auto) 8.00 H (1.56-6.13) K/mm3 Lymph # (Auto) 2.95 (1.18-3.74) K/mm3 [place] # (Auto) 0.74 H (0.24-0.36) K/mm3 Eos # (Auto) 0.49 H (0.04-0.36) K/mm3 Baso # (Auto) 0.04 (0.01-0.08) K/mm3 Sodium 142 (136-145) mEq/L Potassium 3.9 (3.5-5.1) mEq/L Chloride 107 (98-107) mEq/L Carbon Dioxide 23 (21-32) mEq/L Anion Gap 15.9 H (5-15) BUN 14 (7-18) mg/dL Creatinine 0.8 (0.55-1.02) mg/dL Est Cr Clr Drug Dosing 79.90 mL/min Estimated GFR (MDRD) > 60 (>60) mL/min BUN/Creatinine Ratio 17.5 (14-18) Glucose 101 (74-106) mg/dL POC Glucose 108 H (70-105) mg/dL Calcium 9.2 (8.5-10.1) mg/dL Total Bilirubin 0.3 (0.2-1.0) mg/dL AST 46 H (15-37) U/L ALT 42 (14-59) U/L Alkaline Phosphatase 128 H (46-116) U/L Troponin I < 0.017 (0.00-0.056) ng/mL Total Protein 6.6 (6.4-8.2) g/dl Albumin 2.6 L (3.4-5.0) g/dl Globulin 4.0 gm/dL Albumin/Globulin Ratio 0.7 L (1-2) Meds: Medications Generic Name Dose Route Start Last Admin Trade Name Freq PRN Reason Stop Dose Admin Sodium Chloride 10 ml 07/28/17 19:44 07/28/17 19:59 Saline Flush FLUSH 10 ml ASDIRECTED PRN Administration Keep Vein Open - Re-Assessments/Exams Free Text/Narrative Re-Assessment/Exam: 07/28/17 20:52 A stroke alert was called. The patient's last known well was last night at 8pm. I ordered an IV saline lock, EKG, CT of her head and labs. Her EKG shows a NSR with no acute problems. Her CT shows nothing acute. Her WBC was elevated at 12.26. Her alk phos was elevated at 128. Her AST was elevated at 45. Her troponin was negative. 07/28/17 21:03 I talked with the patient and she was sleeping with her son on her chest this morning and she had the right hand numbness. This afternoon when she took a nap he was on her chest again and the numbness was worse. I feel this is a neuropathy from being in the same position. She has improved since she has been here. I will have her sleep separate from her child to avoid suffocating him and causing her numbness. Departure - Departure Time of Disposition: 21:05 Disposition: Home, Self-Care 01 Condition: Good Clinical Impression: Peripheral neuropathy Qualifiers: Peripheral neuropathy type: mononeuropathy, other Qualified Code(s): G58.8 - Other specified mononeuropathies - Discharge Information Referrals: Huber Marrero MD [Primary Care Provider] - Forms: ED Department Discharge Additional Instructions: Have your son sleep in a crib on his back and not with you. This is the safest for your son. This will help with your numbness. It will allow you to move around when you sleep. Follow up with your doctor. Please return if you are worse. - My Orders Last 24 Hours: My Active Orders 07/28/17 19:44 Cardiac Monitoring [RC] . DIRECTED Sodium Chloride 0.9% [Saline Flush] 10 ml FLUSH ASDIRECTED PRN Peripheral IV Insertion Adult [OM.PC] Stat 07/28/17 19:45 EKG Documentation Completion [RC] STAT Peripheral IV Care [RC] . DIRECTED - Assessment/Plan Last 24 Hours: My Active Orders 07/28/17 19:44 Cardiac Monitoring [RC] . DIRECTED Sodium Chloride 0.9% [Saline Flush] 10 ml FLUSH ASDIRECTED PRN Peripheral IV Insertion Adult [OM.PC] Stat 07/28/17 19:45 EKG Documentation Completion [RC] STAT Peripheral IV Care [RC] . DIRECTED
== END 2017-07-28 21:35 | disposition home or self-care (01) ==
LOC: SUPCPDRO 19:23 → JD.ED 19:23
DX: G58.8 Other specified mononeuropathies (principal); Z79.899 Other long term (current) drug therapy; F17.210 Nicotine dependence, cigarettes, uncomplicated
CPT/HCPCS: 36415; 70450; 80053; 82962; 84484; 85025; 93005; 99285; J7050; 99283

== ENCOUNTER 2022-03-23 08:07 | Emergency (ER) | payer BC ==
[2022-03-23] MEDS ORDERED: HYDROmorphone 0.5 MG/0.5 ML Syringe IVPUSH ONE ×2 (10:51→12:15)
[2022-03-23] MEDS ORDERED: Ondansetron 4 MG/2 ML SDV IVPUSH ONE (10:51)
[2022-03-23 11:00] LABS: ESTIMATED GFR 104 mL/min (>60)
[2022-03-23] MEDS ORDERED: Sodium Chloride 0.9% 1,000 ML IV SCH (11:00)
[2022-03-23] MEDS: Sodium Chloride 0.9% 10 ML Syringe FLUSH PRN ×2 (11:36→12:23)
[2022-03-23] MEDS ORDERED: Alum Hydrox/Mag Hydrox/Simeth 30 ML, Lidocaine 2% 15 ML PO ONE ×2 (12:15)
[2022-03-23 14:33] VITALS: BP 115/73; PULSE 54
== END 2022-03-23 14:31 | disposition home or self-care (01) ==
LOC: JD.ED 08:07
DX: R10.11 Right upper quadrant pain (principal); F17.210 Nicotine dependence, cigarettes, uncomplicated
CPT/HCPCS: 36415; 74019; 76705; 80053; 83690; 84703; 85025; 86140; 96361; 96374; 96375; 96376; 99284; A9270; J1170; J2405; J3490; J7030

== ENCOUNTER 2025-01-03 11:44 | Emergency (ER) | payer BC ==
[2025-01-03] MEDS: Sodium Chloride 0.9% 10 ML Syringe FLUSH PRN (12:18)
[2025-01-03] MEDS: Ondansetron 4 MG/2 ML SDV IVPUSH ONE (12:19)
[2025-01-03] MEDS: Sodium Chloride 0.9% 1,000 ML IV STA (12:20)
[2025-01-03 12:55] LABS: BASOPHILS PERCENT AUTO 0.3 % (0.0-1.0); EOSINOPHILS ABSOLUTE AUTO 0.1 K/mm3 (0.0-0.4); EOSINOPHILS PERCENT AUTO 0.5 % (0.0-6.0); HEMATOCRIT 41.6 % (37.0-47.0); HEMOGLOBIN 15.6 gm/dl (12.0-16.0); IMMATURE GRAN ABSOLUTE AUTO 0.03 K/mm3 (0.00-0.05); IMMATURE GRAN PERCENT AUTO 0.3 % (0.0-0.4); LYMPHOCYTES PERCENT AUTO 19.6 % (24.0-44.0); MEAN CORPUSCULAR HEMOGLOBIN 31.8 pg (28.0-32.0); MEAN CORPUSCULAR HGB CONC 37.5 g/dl (32.0-36.0); MEAN CORPUSCULAR VOLUME 84.9 fl (83.0-99.0); MONOCYTES ABSOLUTE AUTO 0.8 K/mm3 (0.0-0.8); MONOCYTES PERCENT AUTO 7.4 % (0.0-8.0); NEUTROPHILS ABSOLUTE AUTO 7.5 K/mm3 (1.8-7.7); NEUTROPHILS PERCENT AUTO 71.9 % (41.0-71.0); PLATELET COUNT,PLT 232 K/mm3 (150-400); WHITE BLOOD CELL COUNT,WBC 10.37 K/mm3 (3.9-11.3)
[2025-01-03 13:11] LABS: A/G RATIO 1.1 (1-2); ANION GAP 17.3 (5-15); BUN/CREATININE RATIO 12.9 (14-18); C-REACTIVE PROTEIN 3.09 mg/dL (<0.30); CALCIUM 9.5 mg/dL (8.5-10.1); CREATININE 0.7 mg/dL (0.55-1.02); EST CRCL DRUG DOSING (CG) 85.94 mL/min; POTASSIUM,K 3.3 mEq/L (3.5-5.1); PROTEIN TOTAL,TP 7.7 g/dl (6.4-8.2)
[2025-01-03] MEDS: Ketorolac 30 MG/ML SDV IVPUSH ONE (13:17)
[2025-01-03] MEDS: diphenhydrAMINE 50 MG/ML SDV IVPUSH ONE (13:17)
[2025-01-03] MEDS: Albuterol/Ipratropium 3.0-0.5 MG/3 ML Neb Soln NEB ONE (14:16)
[2025-01-03 16:38] VITALS: BP 120/61; PULSE 66
== END 2025-01-03 15:20 | disposition home or self-care (01) ==
LOC: JD.ED 11:44
DX: J40 Bronchitis, not specified as acute or chronic (principal); K21.9 Gastro-esophageal reflux disease without esophagitis; Z79.899 Other long term (current) drug therapy
CPT/HCPCS: 36415; 70450; 71046; 80053; 84703; 85025; 86140; 86738; 94640; 96361; 96374; 96375; 99284; J1200; J1885; J2405; J7030; J7620; 99283; A9270-GY

== ENCOUNTER 2025-05-12 06:56 | Day surgery (SDC) | payer BC ==
[~2025-05-12 06:56] MED LIST: Lactated Ringers 1,000 ML IV SCH; Sodium Chloride 0.9% 10 ML Syringe FLUSH PRN; Sodium Chloride 0.9% 10 ML Syringe FLUSH SCH
[2025-05-12] MEDS: Lactated Ringers 1,000 ML IV SCH (07:25)
[2025-05-12] MEDS ORDERED: Propofol 200 MG/20 ML SDV ONE ×3 (07:34→08:14)
[2025-05-12 09:47] VITALS: BP 118/66; PULSE 82
== END 2025-05-12 09:08 | disposition home or self-care (01) ==
LOC: JD.SDS 06:56
PROVIDERS: ATTEND Surgery
DX: K31.89 Other diseases of stomach and duodenum (principal); K92.2 Gastrointestinal hemorrhage, unspecified; K21.9 Gastro-esophageal reflux disease without esophagitis; K31.7 Polyp of stomach and duodenum; D50.9 Iron deficiency anemia, unspecified; F17.210 Nicotine dependence, cigarettes, uncomplicated; Z79.899 Other long term (current) drug therapy
CPT/HCPCS: 43239; 45380; 81025; C9777; J2704; J7120; 00813